=== PATIENT | male | born 1980 | race Caucasian/White ===

== ENCOUNTER 2019-11-24 20:57 | Emergency (ER) | payer OTHER ==
[2019-11-24 21:05] VITALS: BP 141/91
[2019-11-24] MEDS ORDERED: PSEUDOEPHEDRINE 30 MG TABLET PO STA (21:48)
--- NOTE | 2019-11-24 21:51 | ED Physician Documentation ---
History of Present Illness - Stated complaint Stated Complaint: SINUS CONGESTION - Chief complaint Chief Complaint: Heent - History obtained from History obtained from: Patient - History of Present Illness Timing: How many weeks ago (1) Pain level max: 4 Pain level now: 3 - Additonal information Additional information: Sinus pressure and congestion for the past 7 to 8 days. Nothing makes it better or worse. Tried Claritin without relief. No fevers. No cough. No sore throat. Review of Systems Constitutional: denies: Fever, Chills Nose: reports: Congestion, Sinus pressure / pain. denies: Rhinorrhea / runny nose Throat: denies: Sore throat Cardiac: denies: Chest pain / pressure Respiratory: denies: Cough GI: denies: Nausea, Vomiting, Diarrhea Skin: denies: Rash PD PAST MEDICAL HISTORY - Past Medical History Past Medical History: Yes Cardiovascular: Hypertension, High cholesterol Neuro: Migraines - Past Surgical History Past Surgical History: Yes HEENT: Tonsil/Adenoidectomy, Other - Present Medications Home Medications: Ambulatory Orders Medication Instructions Recorded Confirmed Amitriptyline [Elavil] 25 mg PO DAILY PRN 11/24/19 11/24/19 Cetirizine HCl/Pseudoephedrine 1 each PO BID PRN #30 tab.er.12h 11/24/19 [Zyrtec-D Tablet] Fluticasone [Flonase] 1 sprays PANCHO BID PRN #1 bottle 11/24/19 Lisinopril [Prinivil] 5 mg DAILY 11/24/19 11/24/19 Pravastatin [Pravachol] 40 mg DAILY 11/24/19 11/24/19 Rizatriptan Benzoate [Maxalt] 10 mg PO DAILY PRN 11/24/19 11/24/19 - Allergies Allergies/Adverse Reactions: Allergies Allergy/AdvReac Type Severity Reaction Status Date / Time No Known Drug Allergies Allergy Verified 11/24/19 21:05 - Social History Does the pt smoke?: No Smoking Status: Never smoker Does the pt drink ETOH?: Yes Does the pt have substance abuse?: No - Immunizations Immunizations are current?: Yes - POLST Patient has POLST: No PD ED PE NORMAL - Vitals Vital signs reviewed: Yes - General General: Alert and oriented X 3, No acute distress, Well developed/nourished - HEENT HEENT: Moist mucous membranes - Neck Neck: Supple, no meningeal sign - Cardiac Cardiac: RRR, Strong equal pulses - Respiratory Respiratory: No respiratory distress, Clear bilaterally - Abdomen Abdomen: Soft, Non tender, Non distended - Derm Derm: Warm and dry - Neuro Neuro: Alert and oriented X 3 - Psych Psych: Normal mood, Normal affect Results - Vitals Vitals: Vital Signs - 24 hr 11/24/19 11/24/19 21:03 21:56 Temperature 35.4 C L 36.7 C Heart Rate 87 Respiratory 16 Rate Blood Pressure 141/91 H O2 Saturation 96 PD MEDICAL DECISION MAKING - ED course Complexity details: considered differential, d/w patient ED course: Patient with what appears to be sinus congestion. No evidence of infection. No evidence that antibiotics are needed at this time. Will place on decongestants and intranasal steroids. Patient counseled regarding signs and symptoms for which I believe and urgent re-evaluation would be necessary. Patient with good understanding of and agreement to plan and is comfortable going home at this time This document was made in part using voice recognition software. While efforts are made to proofread this document, sound alike and grammatical errors may occur. Departure - Departure Disposition: 01 Home, Self Care Clinical Impression: Sinusitis Qualifiers: Sinusitis location: frontal Chronicity: acute Recurrence: non-recurrent Qualified Code(s): J01.10 - Acute frontal sinusitis, unspecified Condition: Good Instructions: ED Sinusitis No Abx Follow-Up: your,doctor in 1 week [Other] Prescriptions: Cetirizine HCl/Pseudoephedrine [Zyrtec-D Tablet] 1 each PO BID PRN #30 tab.er.12h PRN Reason: nasal congestion Fluticasone [Flonase] 1 sprays PANCHO BID PRN #1 bottle PRN Reason: Nasal Congestion Comments: Return if you worsen. This should improve over the next 2 to 3 days. Follow-up with your doctor for further care. Discharge Date/Time: 11/24/19 21:56
== END 2019-11-24 21:56 | disposition home or self-care (01) ==
LOC: ED 20:57
DX: J01.10 Acute frontal sinusitis, unspecified (principal); I10 Essential (primary) hypertension
CPT/HCPCS: 99282; 99284; A9270